=== PATIENT | female | born 2000 | race Caucasian/White ===

== ENCOUNTER → 2019-11-02 | Outpatient (CLI) | payer OTHER ==
--- NOTE | 2019-11-02 12:46 | Diagnostic Imaging Report ---
PROCEDURE: US Thyroid. TECHNIQUE: Multiple real-time grayscale images were obtained of the thyroid in various projections. INDICATION: Thyromegaly. FINDINGS: The right lobe measures 5.2 x 1.7 x 2.3 cm. There is a 1.2 x 1.2 cm slightly lobulated the hypoechoic solid mass in the lower pole. This does show vascularity. No calcifications are seen. The left lobe measures 4.6 x 1.7 x 1.3 cm. Left lobe is very heterogeneous as well without discrete nodule. The isthmus measures 2 mm. IMPRESSION: 1. Thyromegaly with very heterogeneous appearance to both lobes with mild hypervascularity. 2. There is a solid lobulated slightly hypoechoic 1.2 cm nodule in the lower pole on the right. This is of the concern. The would recommend the FNA ultrasound-guided biopsy. TI-RADS 4. Dictated by: Dictated on workstation # [id number]
== END ==
LOC: RAD 10:05
PROVIDERS: ATTEND Nurse Practitioner Family
DX: E04.1 Nontoxic single thyroid nodule (principal)
CPT/HCPCS: 76536

== ENCOUNTER → 2022-12-30 | Outpatient (CLI) | payer BC, OTHER ==
--- NOTE | 2022-12-30 13:54 | Diagnostic Imaging Report ---
PROCEDURE: US Thyroid. TECHNIQUE: Multiple real-time grayscale images were obtained of the thyroid in various projections. INDICATION: Thyromegaly. FINDINGS: Right lobe of thyroid measures 4.8 x 2.2 x 1.8 cm. Left lobe measures 4.4 x 1.7 x 1.8 cm. Isthmus measures 0.2 cm. There is a heterogeneous nodule in the right measuring 1.3 x 0.8 x 1 cm. Both lobes are somewhat heterogeneous. There is increased vascularity IMPRESSION: Generally benign appearing nodule in the inferior aspect right lobe of thyroid measuring up to 1.2 cm. Recommend 6 month follow-up to ensure stability. Dictated by: Dictated on workstation # [id number]
== END ==
LOC: RAD 09:49
PROVIDERS: ATTEND Nurse Practitioner Family
DX: E01.0 Iodine-deficiency related diffuse (endemic) goiter (principal)
CPT/HCPCS: 76536